=== PATIENT | female | born 1960 | race Caucasian/White ===

== ENCOUNTER 2023-06-07 19:26 | Emergency (ER) | payer MEDICARE ==
[~2023-06-07] VITALS: Ht 162.6 cm; Wt 86.2 kg
[2023-06-07] MEDS ORDERED: POLY10DR6 LEFTEYE (20:54)
[2023-06-07 21:05] VITALS: BP 154/82; TEMP 98.5; O2SAT 98
== END 2023-06-07 21:02 | disposition home or self-care (01) ==
LOC: ER 19:26
DX: H10.89 Other conjunctivitis (principal); B96.89 Other specified bacterial agents as the cause of diseases classified elsewhere; K21.9 Gastro-esophageal reflux disease without esophagitis; Z79.899 Other long term (current) drug therapy
CPT/HCPCS: A4663